=== PATIENT | female | born 1975 | race African-American/Black ===

== ENCOUNTER 2019-10-30 07:26 | Observation (INO) | payer OTHER, BC ==
--- NOTE | 2019-10-30 09:39 | ER Document Report ---
ED GI/ - General Chief Complaint: Abdominal Pain Stated Complaint: NAUSEA/VOMITNG/DIARRHEA Primary Care Provider: EILEEN YANES MD [Primary Care Provider] - Follow up as needed Notes: CHIEF COMPLAINT: Abdominal pain diarrhea nausea HPI: 44-year-old female presenting with 5 days of generalized abdominal cramping with some nausea vomiting and dry heaving as well as multiple episodes of diarrhea. No definite fevers. Has had some chills no dysuria. ROS: See HPI - all other systems were reviewed and are otherwise negative Constitutional: no fever, positive chills Eyes: no drainage, no blurred vision ENT: no runny nose, no sore throat Cardiovascular: no chest pain Resp: no SOB, no cough GI: + vomiting, + diarrhea, + abdominal pain : no dysuria Integumentary: no rash Allergy: no hives Musculoskeletal: no extremity pain or swelling Neurological: no numbness/tingling, no weakness MEDICATIONS: I agree with the patient medications as charted by the RN. ALLERGIES: I agree with the allergies as charted by the RN. PAST MEDICAL HISTORY/PAST SURGICAL HISTORY: Reviewed and agree as charted by RN. SOCIAL HISTORY: Reviewed and agree as charted by RN. FAMILY HISTORY: No significant familial comorbid conditions directly related to patient complaint EXAM: Reviewed vital signs as charted by RN. CONSTITUTIONAL: Alert and oriented and responds appropriately to questions. Well-appearing; well-nourished HEAD: Normocephalic; atraumatic EYES: PERRL; Conjunctivae clear, sclerae non-icteric ENT: normal nose; no rhinorrhea; moist mucous membranes; pharynx without lesions noted, no uvula edema or deviation, no tonsillar hypertrophy, phonation normal NECK: Supple without meningismus; non-tender; no cervical lymphadenopathy, no masses CARD: RRR; no murmurs, no clicks, no rubs, no gallops; symmetric distal pulses RESP: Normal chest excursion without splinting or tachypnea; breath sounds clear and equal bilaterally; no wheezes, no rhonchi, no rales, pulse oximetry 98% on room air not hypoxic ABD/GI: Normal bowel sounds; non-distended; soft, mild tenderness in the right upper quadrant on palpation. Mild tenderness in the left upper quadrant and left lower quadrant on palpation, no rebound, no guarding; no palpable org anomegaly or masses. BACK: The back appears normal and is non-tender to palpation, there is no CVA tenderness EXT: Normal ROM in all joints; non-tender to palpation; no cyanosis, no effusions, no edema SKIN: Normal color for age and race; warm; dry; good turgor; no acute lesions noted NEURO: Moves all extremities equally; Motor and sensory function intact PSYCH: The patient's mood and manner are appropriate. Grooming and personal hygiene are appropriate. MDM: 44-year-old female presenting for abdominal pain nausea vomiting diarrhea over the last 5 days. Will obtain baseline screening labs plan for CT given location of pain to evaluate for cholecystitis or diverticulitis. Plan to COVID test patient. TRAVEL OUTSIDE OF THE [place] IN LAST 30 DAYS: No - Related Data Allergies/Adverse Reactions: azithromycin [From Zithromax] Allergy (Verified 10/30/19 08:10) amoxicillin [Amoxicillin] Adverse Reaction (Verified 12/14/10 18:07) stomach burn nitrofurantoin [From Macrobid] Adverse Reaction (Verified 12/14/10 18:06) stomach burn Sulfa (Sulfonamide Antibiotics) Adverse Reaction (Verified 12/14/10 18:08) stomach burn Home Medications: Benazepril, HCTZ Past Medical History - Social History Smoking Status: Never Smoker Family History: Reviewed & Not Pertinent - Past Medical History Cardiac Medical History: Reports: Hx Hypertension Neurological Medical History: Reports: Hx Migraine Past Surgical History: Reports: Hx Gynecologic Surgery - D/C 1996 - Immunizations Hx Diphtheria, Pertussis, Tetanus Vaccination: Yes - 2006 Physical Exam - Vital signs Vitals: Temp Pulse Resp BP Pulse Ox 99.3 F 101 H 18 147/90 H 98 10/30/19 07:44 10/30/19 07:44 10/30/19 07:44 10/30/19 07:44 10/30/19 07:44 Course - Re-evaluation Re-evalutation: 10/30/19 12:41 I spoke with the reading radiologist and he is concerned about inflammatory changes in the right lower quadrant. Cannot definitively rule out appendicitis. I went back into reexamine the patient she now has tenderness in the right periumbilical area it seems to be rotating into the right lower quadrant region. I spoke with Dr. Peterson through the OR nurse and he will come down to see the patient. 10/30/19 13:27 patient has been evaluated by Dr. Peterson, will admit observation overnight, will rescan with oral contrast. - Vital Signs Vital signs: Temp Pulse Resp BP Pulse Ox 99.3 F 101 H 18 147/90 H 98 10/30/19 07:44 10/30/19 07:44 10/30/19 07:44 10/30/19 07:44 10/30/19 07:44 - Laboratory Result Diagrams: 10/30/19 10:59 10/30/19 10:59 Laboratory results interpreted by me: 10/30/19 10/30/19 10/30/19 09:45 10:59 10:59 WBC 12.5 H Lymph % (Auto) 9.3 L Absolute Neuts (auto) 10.8 H Seg Neutrophils % 86.4 H Sodium 135.9 L Urine Ketones 80 H Urine Blood MODERATE H Discharge - Discharge Clinical Impression: Right lower quadrant pain Condition: Stable Disposition: ADMITTED OBSERVATION Admitting Provider: Surgicalist - Dr. Peterson Unit Admitted: Surgical Floor Referrals: EILEEN YANES MD [Primary Care Provider] - Follow up as needed
[2019-10-30 10:11] LABS: APPEARANCE,URINE CLEAR; BILIRUBIN,URINE NEGATIVE (NEGATIVE); COLOR,URINE YELLOW; GLUCOSE, URINE NEGATIVE (NEGATIVE); KETONES,URINE 80 mg/dL (NEGATIVE); LEUKOCYTE ESTERASE,URINE NEGATIVE (NEGATIVE); NITRITE,URINE NEGATIVE (NEGATIVE); PROTEIN,URINE NEGATIVE (NEGATIVE); URINE SPECIFIC GRAVITY 1.016; UROBILINOGEN,URINE NEGATIVE mg/dL (<2.0)
[2019-10-30] MEDS ORDERED: KETOROLAC TROMETHAMINE 60 MG/2 ML SDV ONE (10:36)
[2019-10-30] MEDS ORDERED: ONDANSETRON HCL INJ/PF 4 MG/2 ML SDV ONE (10:36)
[2019-10-30] MEDS ORDERED: GLYCOPYRROLATE 1 MG/5 ML VIAL ONE (10:36)
[2019-10-30] MEDS ORDERED: NEOSTIGMINE METHYLSULFATE 10 MG/10 ML VIAL ONE (10:36)
[2019-10-30] MEDS ORDERED: SUCCINYLCHOLINE CHLORIDE INJ 200 MG/10 ML VIAL ONE (10:36)
[2019-10-30] MEDS ORDERED: LIDOCAINE 2% INJ-PF (20 MG/ML) 2 ML AMPUL ONE (10:36)
[2019-10-30] MEDS ORDERED: ROCURONIUM BROMIDE INJ 50 MG/5 ML VIAL IV ONE (10:36)
[2019-10-30 11:15] LABS: ABSOLUTE LYMPHOCYTES (AUTO) 1.2 10^3/uL (0.5-4.7); ABSOLUTE MONOCYTES (AUTO) 0.5 10^3/uL (0.1-1.4); ABSOLUTE NEUT (AUTO) 10.8 10^3/uL (1.7-8.2); BASOPHILS % (AUTO) 0.1 % (0-2); HEMATOCRIT 39.1 % (36.0-47.0); HEMOGLOBIN 13.2 g/dL (12.0-15.5); LYMPHOCYTES % (AUTO) 9.3 % (13-45); MEAN CORPUSCULAR HEMOGLOBIN 29.7 pg (27.0-33.4); MEAN CORPUSCULAR HGB CONC 33.8 g/dL (32.0-36.0); MEAN CORPUSCULAR VOLUME 88 fl (80-97); MONOCYTES % (AUTO) 4.2 % (3-13); PLATELET COUNT 257 10^3/uL (150-450); RED BLOOD COUNT 4.46 10^6/uL (3.72-5.28); RED CELL DISTRIBUTION WIDTH 13.5 % (11.5-14.0); SEGMENTED NEUTROPHILS % (AUTO) 86.4 % (42-78); TOTAL CELLS COUNTED % (AUTO) 100 %; WHITE BLOOD COUNT 12.5 10^3/uL (4.0-10.5)
[2019-10-30 11:37] LABS: ALBUMIN 4.1 g/dL (3.5-5.0); ALKALINE PHOSPHATASE 62 U/L (38-126); ANION GAP 10 (5-19); ASPARTATE AMINO TRANSFERASE 18 U/L (14-36); BILIRUBIN,DIRECT 0.4 mg/dL (0.0-0.4); BILIRUBIN,TOTAL 0.8 mg/dL (0.2-1.3); BLOOD UREA NITROGEN 10 mg/dL (7-20); CALCIUM 9.3 mg/dL (8.4-10.2); CARBON DIOXIDE 26 mmol/L (22-30); CHLORIDE 100 mmol/L (98-107); GLUCOSE 94 mg/dL (75-110); POTASSIUM 3.7 mmol/L (3.6-5.0); TOTAL PROTEIN 7.4 g/dL (6.3-8.2)
--- NOTE | 2019-10-30 12:22 | RADIOLOGY REPORT (SQ) ---
EXAM DESCRIPTION: CT ABD/PELVIS WITH IV ONLY IMAGES COMPLETED DATE/TIME: 10/30/2019 12:00 pm REASON FOR STUDY: gen abd pain COMPARISON: None. TECHNIQUE: CT scan of the abdomen and pelvis performed using helical scanning technique with dynamic intravenous contrast injection. No oral contrast. Images reviewed with lung, soft tissue, and bone windows. Reconstructed coronal and sagittal MPR images reviewed. Delayed images for evaluation of the urinary system also acquired. All images stored on PACS. All CT scanners at this facility use dose modulation, iterative reconstruction, and/or weight based d osing when appropriate to reduce radiation dose to as low as reasonably achievable (ALARA). [facility]: Dose Right [facility]: CareDose [facility]: Dose Right [facility]: Teradose 4D [facility]: [employer] CONTRAST TYPE AND DOSE: contrast/concentration: Isovue 350.00 mmol/ml; Total Contrast Delivered: 100 .0 ml; Total Saline Delivered: 72.0 ml RENAL FUNCTION: GFR > 60. RADIATION DOSE: CT Rad equipment meets quality standard of care and radiation dose reduction techniq ues were employed. CTDIvol: 7.6 - 10.8 mGy. DLP: 974 mGy-cm.. LIMITATIONS: None. FINDINGS: LOWER CHEST: No significant findings. No nodules or infiltrates. LIVER: Normal size. No masses. No dilated ducts. SPLEEN: Normal size. No focal lesions. PANCREAS: No masses. No significant calcifications. No adjacent inflammation or peripancreatic fluid collections. Pancreatic duct not dilated. GALLBLADDER: No identified stones by CT criteria. No inflammatory changes to suggest cholecystitis. ADRENAL GLANDS: No significant masses or asymmetry. RIGHT KIDNEY AND URETER: No solid masses. No significant calcifications. No hydronephrosis or hyd roureter. LEFT KIDNEY AND URETER: No solid masses. No significant calcifications. No hydronephrosis or hydr oureter. AORTA AND VESSELS: No aneurysm. No dissection. Renal arteries, SMA, celiac without stenosis. RETROPERITONEUM: Inflammatory changes in the right lower quadrant anterior to the right iliopsoas. BOWEL AND PERITONEAL CAVITY: Inflammation associated with loop of bowel series 601, image 35. APPENDIX: A normal appendix is not identified. PELVIS: No mass. No free fluid. Normal bladder. ABDOMINAL WALL: No masses. No hernias. BONES: No significant or acute findings. OTHER: No other significant finding. IMPRESSION: Inflammatory changes right lower quadrant. Main differentials are appendicitis versus i nflammatory bowel disease. Surgical consultation is recommended. TECHNICAL DOCUMENTATION: JOB ID: [id number] Quality ID # [id number]: Final reports with documentation of one or more dose reduction techniques (e.g., Au tomated exposure control, adjustment of the mA and/or kV according to patient size, use of iterative reconstruction technique) 2010 [facility]- All Rights Reserved Reading location - IP/workstation name: [email or web address]
[2019-10-30] MEDS ORDERED: NORMAL SALINE 1000 ML 1,000 ML IV ONE (12:48)
--- NOTE | 2019-10-30 13:26 | PDOC H&P ---
History of Present Illness Admission Date/PCP: EILEEN YANES MD Patient complains of: Abdominal pain nausea History of Present Illness: BEENA KASPER is a 44 year old female Presents emergency room via ground rescue complaining of a week history of progressive abdominal pain, anorexia, nausea, and abdominal tenderness, no change in her routine bowel habits which fluctuate from normal to loose. Over the last several days the pain is intensified. Patient seen emergency department where she had mid abdominal and pelvic pain. CT scan of the abdomen and pelvis without oral contrast revealed inflammatory change in the right lower quadrant, could not rule out appendicitis versus inflammatory bowel changes. On further questioning, patient has stated she has had intermittent abdominal pains for weeks if not months. She denies constitutional symptoms and has been functional. Denies history of trauma or previous gastrointestinal diagnoses. She is seen in the emergency department was found to have localized right lower quadrant tenderness but no peritoneal signs. She was advised admission for further evaluation and treatment. Past Medical History Cardiac Medical History: Reports: Hypertension Neurological Medical History: Reports: Migraine Social History Information Source: Patient Smoking Status: Never Smoker Electronic Cigarette use?: No Frequency of Alcohol Use: None Hx Recreational Drug Use: No Family History Family History: None Parental Family History Reviewed: No Children Family History Reviewed: No Sibling(s) Family History Reviewed.: No Medication/Allergy Home Medications: Lisinopril/Hydrochlorothiazide [Zestoretic 20-12.5 mg Tablet] 1 each PO QAM #60 tablet 12/14/10 Allergies/Adverse Reactions: azithromycin [From Zithromax] Allergy (Verified 10/30/19 08:10) amoxicillin [Amoxicillin] Adverse Reaction (Verified 12/14/10 18:07) stomach burn nitrofurantoin [From Macrobid] Adverse Reaction (Verified 12/14/10 18:06) stomach burn Sulfa (Sulfonamide Antibiotics) Adverse Reaction (Verified 12/14/10 18:08) stomach burn Review of Systems Constitutional: PRESENT: as per HPI Eyes: ABSENT: visual disturbances Ears: ABSENT: hearing changes Cardiovascular: ABSENT: chest pain, dyspnea on exertion, edema, orthropnea, palpitations Respiratory: ABSENT: cough, hemoptysis Gastrointestinal: PRESENT: as per HPI Genitourinary: ABSENT: dysuria, hematuria Musculoskeletal: ABSENT: joint swelling Integumentary: ABSENT: rash, wounds Neurological: ABSENT: abnormal gait, abnormal speech, confusion, dizziness, focal weakness, syncope Psychiatric: ABSENT: anxiety, depression, homidical ideation, suicidal ideation Endocrine: ABSENT: cold intolerance, heat intolerance, polydipsia, polyuria Hematologic/Lymphatic: ABSENT: easy bleeding, easy bruising Physical Exam Vital Signs: Temp Pulse Resp BP Pulse Ox 99.3 F 101 H 18 147/90 H 98 10/30/19 07:44 10/30/19 07:44 10/30/19 07:44 10/30/19 07:44 10/30/19 07:44 Intake & Output 10/29/19 10/30/19 10/31/19 06:59 06:59 06:59 Weight 88.3 kg General appearance: PRESENT: no acute distress Head exam: PRESENT: normocephalic Eye exam: PRESENT: EOMI Mouth exam: PRESENT: dry mucosa Neck exam: PRESENT: full ROM Respiratory exam: PRESENT: clear to auscultation julio Cardiovascular exam: PRESENT: RRR Pulses: PRESENT: normal carotid pulses, normal radial pulses, normal femoral pulses, normal dorsalis pedis pul GI/Abdominal exam: PRESENT: other - Soft, minimally tender in the right lower quadrant to deep palpation. No rigidity no peritoneal signs Rectal exam: PRESENT: deferred Extremities exam: PRESENT: full ROM Musculoskeletal exam: PRESENT: full ROM Neurological exam: PRESENT: oriented to person, oriented to place, oriented to time, oriented to situation Psychiatric exam: PRESENT: appropriate affect Skin exam: PRESENT: dry Results Laboratory Results: 10/30/19 10:59 10/30/19 10:59 10/30/19 10/30/19 10/30/19 09:45 10:59 10:59 WBC 12.5 H RBC 4.46 Hgb 13.2 Hct 39.1 MCV 88 MCH 29.7 MCHC 33.8 RDW 13.5 Plt Count 257 Seg Neutrophils % 86.4 H Sodium 135.9 L Potassium 3.7 Chloride 100 Carbon Dioxide 26 Anion Gap 10 BUN 10 Creatinine 0.74 Est GFR ( Amer) > 60 Glucose 94 Calcium 9.3 Total Bilirubin 0.8 AST 18 Alkaline Phosphatase 62 Total Protein 7.4 Albumin 4.1 Lipase 68.0 Urine Color YELLOW Urine Appearance CLEAR Urine pH 6.0 Ur Specific [place] 1.016 Urine Protein NEGATIVE Urine Glucose (UA) NEGATIVE Urine Ketones 80 H Urine Blood MODERATE H Urine Nitrite NEGATIVE Ur Leukocyte Esterase NEGATIVE Urine WBC (Auto) 1 Urine RBC (Auto) 2 Impressions: Abdomen/Pelvis CT 10/30/19 09:23 IMPRESSION: Inflammatory changes right lower quadrant. Main differentials are appendicitis versus inflammatory bowel disease. Surgical consultation is recommended. Assessment & Plan - Diagnosis (1) Right lower quadrant pain Is this a current diagnosis for this admission?: Yes Plan: Impression: Escalating abdominal pain nausea anorexia, right lower quadrant tenderness, mild leukocytosis and equivocal findings on CT scan starting for possible appendicitis,: Rule out other etiologies, though less likely Discussion and plan: 1. Keep n.p.o., IV fluids, and will admit for observation status. 2. Will repeat CT scan with oral contrast to better delineate right lower quadrant anatomy 3. Although inflammatory bowel disease is in the differential, I believe it does not explain her acute presentation. I told her she may have appendicitis requiring operative intervention. She expresses her understanding and agrees with the plan. 4. We await the results of the COVID test. (2) Hypertension Is this a current diagnosis for this admission?: Yes - Time Time Spent: 30 to 50 Minutes Critical Time spent with patient: 15-24 minutes Medications reviewed and adjusted accordingly: Yes Anticipated Discharge Disposition: Home, Self Care Anticipated Discharge Timeframe: within 24 hours
[2019-10-30] MEDS: RINGERS SOLUTION,LACTATED 1,000 ML IV PRN (14:34)
--- NOTE | 2019-10-30 15:59 | RADIOLOGY REPORT (SQ) ---
EXAM DESCRIPTION: CT ABD/PELVIS ORAL ONLY IMAGES COMPLETED DATE/TIME: 10/30/2019 3:41 pm REASON FOR STUDY: verbal order COMPARISON: Earlier the same day. TECHNIQUE: CT scan of the abdomen and pelvis performed with oral contrast and no intravenous contras t. Images reviewed with lung, soft tissue, and bone windows. Reconstructed coronal and sagittal MPR i mages reviewed. All images stored on PACS. All CT scanners at this facility use dose modulation, iterative reconstruction, and/or weight based d osing when appropriate to reduce radiation dose to as low as reasonably achievable (ALARA). [facility]: Dose Right [facility]: CareDose [facility]: Dose Right [facility]: Teradose 4D [facility]: [employer] [employer] RADIATION DOSE: mGy. LIMITATIONS: None. FINDINGS: On series 601 image 30, relatively normal appearing terminal ileum and ileocecal valve. D ilated opacified luminal structure medial to the cecum most consistent with appendicitis. Findings w ere discussed with referring surgeon. IMPRESSION: Acute appendicitis. TECHNICAL DOCUMENTATION: JOB ID: [id number] Quality ID # [id number]: Final reports with documentation of one or more dose reduction techniques (e.g., Au tomated exposure control, adjustment of the mA and/or kV according to patient size, use of iterative reconstruction technique) 2010 [employer]- All Rights Reserved Reading location - IP/workstation name: [email or web address]
[2019-10-30] MEDS ORDERED: BUPIVACAINE HCL 0.25 % INJ/PF (2.5 MG/1 ML) 30 ML VIAL ONE (16:48)
[2019-10-30] MEDS ORDERED: HYDROMORPHONE HCL INJ/PF 2 MG/ML AMPULE ONE (17:35)
[2019-10-30] MEDS ORDERED: MIDAZOLAM 2 MG/2 ML INJ ONE (17:35)
[2019-10-30] MEDS ORDERED: FENTANYL CITRATE INJ/PF 100 MCG/2 ML AMPUL ONE (17:35)
[2019-10-30] MEDS ORDERED: PROPOFOL INJ 200 MG/20 ML VIAL IV ONE (17:36)
[2019-10-30] MEDS ORDERED: CEFAZOLIN INJ 1 GM VIAL ONE (18:11)
[2019-10-30] MEDS ORDERED: FENTANYL CITRATE INJ/PF 100 MCG/2 ML AMPUL IV PRN ×3 (18:24)
[2019-10-30] MEDS ORDERED: HYDROMORPHONE HCL INJ/PF 2 MG/ML AMPULE IV PRN (18:24)
[2019-10-30] MEDS ORDERED: MEPERIDINE HCL/PF INJ 25 MG/1 ML DISP.SYRIN IV PRN (18:24)
[2019-10-30] MEDS ORDERED: DIPHENHYDRAMINE HCL 50 MG/ML VIAL IV PRN (18:24)
[2019-10-30] MEDS ORDERED: PROMETHAZINE HCL INJ 25 MG/1 ML VIAL IV PRN ×2 (18:24)
[2019-10-30] MEDS ORDERED: KETOROLAC TROMETHAMINE INJ/PF 30 MG/1 ML SDV IV PRN (19:00)
[2019-10-30] MEDS ORDERED: OXYCODONE-ACETAMINOPHEN 5-325 MG TABLET PO PRN (19:00)
--- NOTE | 2019-10-30 19:08 | Operative Report ---
Operative Report DATE OF SURGERY: 10/30/19 PREOPERATIVE DIAGNOSIS: Acute appendicitis POSTOPERATIVE DIAGNOSIS: Possible acute appendicitis; rule out occult neoplasm OPERATION: Laparoscopic appendectomy SURGEON: FORTUNATO PETERSON ANESTHESIA: GA TISSUE REMOVED OR ALTERED: 1 appendix COMPLICATIONS: None ESTIMATED BLOOD LOSS: Scant INTRAOPERATIVE FINDINGS: See below PROCEDURE: Patient was taken the preop holding area to the main operating room and general anesthesia was induced. Patient voided on-call to the OR. The abdomen was exposed, prepped and draped sterile fashion with Betadine. Surgical plan surgical timeout were conducted. His mentation was set of a laparoscopic appendectomy. Skin was marked and anesthetized with 1% plain lidocaine above the umbilicus, the suprapubic area and the left lower quadrant. A vertical incision was made in the upper aspect of the umbilicus, Veress needle inserted the peritoneal cavity pneumoperitoneum established. Veress needle was removed, 5 mm ports inserted a 5 mm viewing scope was inserted. Under direct visualization, 2 additional ports were placed one in the suprapubic position and a 12 mm in the left lower quadrant. Findings were significant for no evidence of bowel or visceral injury. There was no evidence of blood, pus, or stool in the peritoneal cavity. The uterus, tubes and ovaries were visualized and felt to be grossly normal. Photos were taken. The findings were significant for a inflamed, tortuous appendix, edematous and enlarged. It was curled up just adjacent to the cecum medially beneath the ileocecal valve. We brought onto the field a harmonic scalpel, and took down the attachments between the enlarged appendix, and the surrounding peritoneal reflection. The mesoappendix was taken down similarly with a harmonic scalpel. There was no significant bleeding. We now got to the base of the appendix. It was somewhat thickened; therefore the cecum was elevated nicely and we brought onto the field a 45 mm blue load endostapler. This was fired across the distal end of the cecum, thereby amputating the appendix with its base as part of the index specimen. The reason for this was because the pathology did not appear to be consistent with acute appendicitis but possibly a localized malignancy. The cecum otherwise appeared normal as of the terminal ileum. There was no other pathology visualized in the operative field. The appendix was placed in Endobag and brought to the patient uneventfully and sent to pathology for permanent analysis. Note: At the conclusion of the operation Dr. Peterson is bivalved to the appendix and visualized the lumen carefully. There was evidence of uniformed thickening of the mucosa. We checked the staple line for bleeding and gentle pressure was applied. We now brought onto the field a small portion of Surgicel and placed it over the staple line for complete hemostasis. We leveled the patient out to check for any other problems and there were none. All the operation was complete. Sponge and needle counts are correct. All ports removed under direct visualization, pneumoperitoneum evacuated, and wounds closed with 3-0 Vicryl benzoin and Steri-Strips. Additional quarter percent Marcaine was injected around the operative incisions. Patient tolerated the procedure well, extubated, taken recovery in stable condition
[2019-10-30] MEDS: ONDANSETRON HCL INJ/PF 4 MG/2 ML SDV IV PRN (20:38)
[2019-10-30] MEDS ORDERED: CEFAZOLIN 2 GM/D5W RTU 2 GM/50 ML RTUPB IV SCH (22:00)
[2019-10-30] MEDS: CEFAZOLIN SODIUM 2 GM in DEXTROSE 5%-WATER 100 ML IV SCH (22:10)
[2019-10-31] MEDS: CEFAZOLIN SODIUM 2 GM in DEXTROSE 5%-WATER 100 ML IV SCH (05:30)
[2019-10-31] MEDS: ONDANSETRON HCL INJ/PF 4 MG/2 ML SDV IV PRN (07:57)
[2019-10-31] MEDS: RINGERS SOLUTION,LACTATED 1,000 ML IV PRN (07:57)
[2019-10-31] MEDS ORDERED: DOCUSATE SODIUM 100 MG CAPSULE PO SCH (10:00)
--- NOTE | 2019-10-31 10:12 | PDOC DISCHARGE SUMMARY ---
General - Admit/Disc Date/PCP Admission Date/Primary Care Provider: 10/30/19 14:12 EILEEN YANES MD Discharge Date: 10/31/19 - Discharge Diagnosis Final Diagnosis: Appendicitis - Assessment Summary: This is a 44-year-old female who was admitted to the emergency room with acute lower abdominal pain she was confirmed to have appendicitis taken to the operating last night where she underwent uncomplicated laparoscopic appendectomy. On postop day 1 she was feeling much better she was tolerating a liquid diet wounds were clean and dry she is ready for discharge home today. He will follow-up in surgical clinic in 1 week she needs to follow-up to check her pathology. She will be given a prescription for Percocet for pain. - Additional Information Resuscitation Status: Full Code Discharge Diet: As Tolerated Discharge Activity: No Lifting Over 10 Pounds Referrals: EILEEN YANES MD [Primary Care Provider] - Follow up as needed Prescriptions: Oxycodone HCl/Acetaminophen [Percocet 5-325 mg Tablet] 1 tab PO Q6HP PRN #15 tab PRN Reason: Home Medications: Benazepril/Hydrochlorothiazide [Benazepril-Hctz 20-12.5 mg Tab] 1 each PO BID 10/30/19 Oxycodone HCl/Acetaminophen [Percocet 5-325 mg Tablet] 1 tab PO Q6HP PRN #15 tab 10/31/19 History of Present Illiness History of Present Illness: BEENA KASPER is a 44 year old female Physical Exam Vital Signs: Temp Pulse Resp BP Pulse Ox 98.6 F 88 16 124/71 95 10/31/19 07:47 10/31/19 07:47 10/31/19 07:47 10/31/19 07:47 10/31/19 07:47 Intake & Output 10/30/19 10/31/19 11/01/19 06:59 06:59 06:59 Intake Total 3875 Output Total 2 Balance 3873 Weight 85.6 kg Results Laboratory Results: WBC 12.5 10^3/uL (4.0-10.5) H 10/30/19 10:59 RBC 4.46 10^6/uL (3.72-5.28) 10/30/19 10:59 Hgb 13.2 g/dL (12.0-15.5) 10/30/19 10:59 Hct 39.1 % (36.0-47.0) 10/30/19 10:59 MCV 88 fl (80-97) 10/30/19 10:59 MCH 29.7 pg (27.0-33.4) 10/30/19 10:59 MCHC 33.8 g/dL (32.0-36.0) 10/30/19 10:59 RDW 13.5 % (11.5-14.0) 10/30/19 10:59 Plt Count 257 10^3/uL (150-450) 10/30/19 10:59 Lymph % (Auto) 9.3 % (13-45) L 10/30/19 10:59 [place] % (Auto) 4.2 % (3-13) 10/30/19 10:59 Eos % (Auto) 0.0 % (0-6) 10/30/19 10:59 Baso % (Auto) 0.1 % (0-2) 10/30/19 10:59 Absolute Neuts (auto) 10.8 10^3/uL (1.7-8.2) H 10/30/19 10:59 Absolute Lymphs (auto) 1.2 10^3/uL (0.5-4.7) 10/30/19 10:59 Absolute Monos (auto) 0.5 10^3/uL (0.1-1.4) 10/30/19 10:59 Absolute Eos (auto) 0.0 10^3/uL (0.0-0.6) 10/30/19 10:59 Absolute Basos (auto) 0.0 10^3/uL (0.0-0.2) 10/30/19 10:59 Seg Neutrophils % 86.4 % (42-78) H 10/30/19 10:59 Sodium 135.9 mmol/L (137-145) L 10/30/19 10:59 Potassium 3.7 mmol/L (3.6-5.0) 10/30/19 10:59 Chloride 100 mmol/L (98-107) 10/30/19 10:59 Carbon Dioxide 26 mmol/L (22-30) 10/30/19 10:59 Anion Gap 10 (5-19) 10/30/19 10:59 BUN 10 mg/dL (7-20) 10/30/19 10:59 Creatinine 0.74 mg/dL (0.52-1.25) 10/30/19 10:59 Est GFR ( Amer) > 60 (>60) 10/30/19 10:59 Est GFR (MDRD) Non-Af > 60 (>60) 10/30/19 10:59 Glucose 94 mg/dL (75-110) 10/30/19 10:59 Calcium 9.3 mg/dL (8.4-10.2) 10/30/19 10:59 Total Bilirubin 0.8 mg/dL (0.2-1.3) 10/30/19 10:59 Direct Bilirubin 0.4 mg/dL (0.0-0.4) 10/30/19 10:59 Neonat Total Bilirubin Not Reportable 10/30/19 10:59 Neonat Direct Bilirubin Not Reportable 10/30/19 10:59 Neonat Indirect Bili Not Reportable 10/30/19 10:59 AST 18 U/L (14-36) 10/30/19 10:59 ALT 14 U/L (<35) 10/30/19 10:59 Alkaline Phosphatase 62 U/L (38-126) 10/30/19 10:59 Total Protein 7.4 g/dL (6.3-8.2) 10/30/19 10:59 Albumin 4.1 g/dL (3.5-5.0) 10/30/19 10:59 Lipase 68.0 U/L (23-300) 10/30/19 10:59 Urine Color YELLOW 10/30/19 09:45 Urine Appearance CLEAR 10/30/19 09:45 Urine pH 6.0 (5.0-9.0) 10/30/19 09:45 Ur Specific [place] 1.016 10/30/19 09:45 Urine Protein NEGATIVE mg/dL (NEGATIVE) 10/30/19 09:45 Urine Glucose (UA) NEGATIVE mg/dL (NEGATIVE) 10/30/19 09:45 Urine Ketones 80 mg/dL (NEGATIVE) H 10/30/19 09:45 Urine Blood MODERATE (NEGATIVE) H 10/30/19 09:45 Urine Nitrite NEGATIVE (NEGATIVE) 10/30/19 09:45 Urine Bilirubin NEGATIVE (NEGATIVE) 10/30/19 09:45 Urine Urobilinogen NEGATIVE mg/dL (<2.0) 10/30/19 09:45 Ur Leukocyte Esterase NEGATIVE (NEGATIVE) 10/30/19 09:45 Urine WBC (Auto) 1 /HPF 10/30/19 09:45 Urine RBC (Auto) 2 /HPF 10/30/19 09:45 Urine Bacteria (Auto) TRACE /HPF 10/30/19 09:45 Squamous Epi Cells Auto 1 /HPF 10/30/19 09:45 Urine Mucus (Auto) RARE /LPF 10/30/19 09:45 Urine Ascorbic Acid NEGATIVE (NEGATIVE) 10/30/19 09:45 Urine HCG, Qual NEGATIVE (NEGATIVE) 10/30/19 09:45 COVID-19 Source See comment 10/30/19 10:25 SARS-CoV-2 (PCR) NEGATIVE (NEGATIVE) 10/30/19 16:05 Impressions: Abdomen/Pelvis CT 10/30/19 00:00 IMPRESSION: Acute appendicitis. Abdomen/Pelvis CT 10/30/19 09:23 IMPRESSION: Inflammatory changes right lower quadrant. Main differentials are appendicitis versus inflammatory bowel disease. Surgical consultation is recommended.
[2019-10-31 11:42] VITALS: BP 125/80
== END 2019-10-31 12:00 | disposition home or self-care (01) ==
LOC: ER 07:26 → EH 14:12 → 4S 20:32
PROVIDERS: ATTEND Surgery
DX: K35.80 Unspecified acute appendicitis (principal); I10 Essential (primary) hypertension; Z79.899 Other long term (current) drug therapy; Z03.818 Encounter for observation for suspected exposure to other biological agents ruled out
CPT/HCPCS: 99285; 36415; 83690; 85025; 81025; 80053; 81001; 88304 ×2; 74176; 74177; 99140; 00840; 44970; G0378 ×3; U0003 ×2; J2250; J0690 ×2; J3490 ×3; J1885 ×2; J3010; J2710; J1170 ×2; J0330; J2405 ×2; J7060 ×2; J7030; J7120 ×2; J2704; C9803; 840; 87635